=== PATIENT | female | born 1945 | race Hispanic/Latino ===

== ENCOUNTER 2019-04-12 10:06 | Day surgery (SDC) | payer MEDICARE ==
[2019-04-11 11:31] LABS: BASOPHILS % (AUTO) 0.6 % (0.0-5.0); EOSINOPHILS % (AUTO) 2.6 % (0.0-8.0); HEMATOCRIT 38.6 % (36-48); LYMPHOCYTES % (AUTO) 26.3 % (21.0-51.0); MEAN CORPUSCULAR HEMOGLOBIN 30.5 pg (27.0-33.0); MEAN CORPUSCULAR HGB CONC 31.9 g/dL (32.0-36.0); MEAN CORPUSCULAR VOLUME 95.8 fL (79-99); NEUTROPHILS % (AUTO) 63.3 % (40.0-77.0); PLATELET COUNT (AUTO) 186 K/uL (130-400); RED BLOOD CELL COUNT(AUTO) 4.03 MIL/uL (4.00-5.50); RED CELL DISTRIBUTION WIDTH 13.2 % (11.0-15.5); WHITE BLOOD COUNT (AUTO) 6.4 K/uL (4.8-10.8)
[2019-04-11 11:40] LABS: CREATININE 0.9 mg/dL (0.5-1.5); POTASSIUM 4.6 mmol/L (3.5-5.1)
[2019-04-11 12:42] VITALS: BP 108/66
[2019-04-12] VITALS (15 sets, daily range): BP systolic 126–149; BP diastolic 52–75
[~2019-04-12] VITALS: Ht 142.2 cm; Wt 72.8 kg
[~2019-04-12 10:06] MED LIST: ALEN70TA10 PO; ASPI-555 PO; CLOP75TA14 PO; DICL75TA5 PO; LOSA25TA41 PO; OMEP20TA25 PO; SIMV-46 PO
[2019-04-12] MEDS: CEFAZOLIN SODIUM 1 GM VIAL IVP SCH ×2 (12:00→13:50)
[2019-04-12] MEDS ORDERED: LACTATED RINGERS 1000ML 1,000 ML IV ONE (12:02)
[2019-04-12] MEDS ORDERED: PROPOFOL 10 MG/ML 20ML VIAL IV ONE (12:28)
[2019-04-12] MEDS ORDERED: LIDOCAINE PF 2% 5ML ABBOJECT ONE (12:28)
[2019-04-12] MEDS ORDERED: GLYCOPYRROLATE 1 MG/5 ML SYRINGE ONE (12:28)
[2019-04-12] MEDS ORDERED: FENTANYL CITRATE PF 50 MCG/1 ML 2ML VIAL ONE (12:28)
--- NOTE | 2019-04-12 12:28 | NUR ---
POTENTIAL FOR INFECTION:SHAVED LEFT SHOULDER / LEFT UPPER ARM PER BRANDAN MONTES DE [facility], FOLLOWED BY WIPING WITH MUKUND: 2% CHLORHEXIDINE GLUCONATE CLOTH PATIENTS PRE-OP SKIN PREP
[2019-04-12] MEDS ORDERED: NEOSTIGMINE 5MG/5ML SYR IV ONE (12:29)
[2019-04-12] MEDS ORDERED: ROCURONIUM 10MG/1ML SYR 10 MG/ML ML ONE (12:29)
[2019-04-12] MEDS ORDERED: MIDAZOLAM HCL 1 MG/ML 2ML VIAL ONE (12:29)
[2019-04-12] MEDS ORDERED: ROPIVACAINE 0.5% 5MG/ML 30ML IJ ONE (12:32)
[2019-04-12] MEDS ORDERED: ONDANSETRON HCL 4 MG/2 ML VIAL ONE (14:10)
== END 2019-04-12 16:43 | disposition home or self-care (01) ==
LOC: DAH 10:06
PROVIDERS: ATTEND Orthopaedic Surgery
DX: M75.102 Unspecified rotator cuff tear or rupture of left shoulder, not specified as traumatic (principal); M75.42 Impingement syndrome of left shoulder; I10 Essential (primary) hypertension; E78.5 Hyperlipidemia, unspecified; K21.9 Gastro-esophageal reflux disease without esophagitis; I25.10 Atherosclerotic heart disease of native coronary artery without angina pectoris; M81.0 Age-related osteoporosis without current pathological fracture
CPT/HCPCS: 23130; 23412; 36415; 64415; 71045; 76942; 80048; 85025; 93005; A4213; A4215; A4221; A4222; A4223; A4452; A4510; A4565; A4606; A4649 ×2; A4663; A4930 ×2; A5120; A6204; A6207; A6223; A6260; C1713; J0690; J2001; J2250; J2405; J2704; J2710; J2795; J3010; J3490; J7030; J7120 ×2

== ENCOUNTER 2019-04-14 04:07 | Inpatient (IN) | payer MEDICARE ==
[~2019-04-14] VITALS: Ht 149.9 cm; Wt 77.7 kg
[2019-04-14] MEDS ORDERED: KETOROLAC TROMETHAMINE 30MG/ML ONE (04:46)
[2019-04-14] MEDS ORDERED: HYDROCODONE/ACETAMINOPHEN 10/325 MG TAB ONE (04:46)
[2019-04-14] MEDS ORDERED: MORPHINE SULFATE 4 MG/1ML SYG ONE (05:53)
[2019-04-14 06:13] LABS: BASOPHILS % (AUTO) 0.2 % (0.0-5.0); EOSINOPHILS % (AUTO) 0.1 % (0.0-8.0); HEMATOCRIT 33.2 % (36-48); LYMPHOCYTES % (AUTO) 6.3 % (21.0-51.0); MEAN CORPUSCULAR HEMOGLOBIN 30.7 pg (27.0-33.0); MEAN CORPUSCULAR HGB CONC 32.8 g/dL (32.0-36.0); MEAN CORPUSCULAR VOLUME 93.5 fL (79-99); MONOCYTES % (AUTO) 6.7 % (3.0-13.0); NEUTROPHILS % (AUTO) 86.3 % (40.0-77.0); PLATELET COUNT (AUTO) 144 K/uL (130-400); RED BLOOD CELL COUNT(AUTO) 3.55 MIL/uL (4.00-5.50); RED CELL DISTRIBUTION WIDTH 12.6 % (11.0-15.5); WHITE BLOOD COUNT (AUTO) 11.1 K/uL (4.8-10.8)
[2019-04-14 06:23] LABS: CREATININE 0.8 mg/dL (0.5-1.5); POTASSIUM 4.2 mmol/L (3.5-5.1)
[2019-04-14] MEDS ORDERED: ACETAMINOPHEN 325 MG TAB PO PRN ×2 (07:00)
[2019-04-14] MEDS ORDERED: LACTULOSE 20 GM/30 ML UDCUP PO PRN (07:00)
[2019-04-14] MEDS ORDERED: HYDRALAZINE HCL 20 MG/ML VIAL IV PRN (07:00)
[2019-04-14] MEDS ORDERED: ONDANSETRON HCL 4 MG/2 ML VIAL IVP PRN (07:00)
[2019-04-14] MEDS: CEFAZOLIN SODIUM 1 GM VIAL IVP SCH ×2 (10:15→22:38)
[2019-04-14] MEDS ORDERED: FAMOTIDINE 20MG TAB 20 MG TAB ONE (11:00)
[2019-04-14] MEDS ORDERED: ENOXAPARIN SODIUM 40 MG/0.4 ML SYRINGE SQ ONE (11:00)
--- NOTE | 2019-04-14 11:24 | NUR ---
INITIAL Patient lives alone. Emergency contact is seun, Audrey Jorge, [phone]. No Home Health. PHC is with [facility] 26 hours a week. DME: [facility], shower chair. Granddaughter is provider. Patient needs help with ADL's and does not drive. PCP is Andres Castillo. Pharmacy is [facility] in [place]. DCP is home. Addendum: 04/14/19 at 1128 by TYE REYES SS Amended: Links added.
--- NOTE | 2019-04-14 13:04 | NUR ---
DCP - Rehab MD order for rehab placement. SW met with patient and granddaughter, Audrey Jorge. SW informed patient of MD order but patient states she does not want to go to any facility. Patient stated she wants to go home and would prefer to have Home Health. [facility] completed for any Home health in network. Patient has no preference. Granddaughter, Audrey, stated that patient's daughter is coming from [place] to help care for patient. Patient will have 24 hour care as per granddaughter. Patient's nurse, Mar, informed of above information.
[2019-04-14] MEDS ORDERED: SODIUM CHLORIDE 0.9% 100 ML IV ONE (14:14)
[2019-04-14] MEDS ORDERED: CEFAZOLIN SODIUM 1 GM VIAL ONE (14:14)
[2019-04-14] MEDS ORDERED: SODIUM CHLORIDE 0.9% 500ML 500 ML IV ONE (14:15)
[2019-04-14 17:18] VITALS: BP 145/65
[2019-04-14 19:21] VITALS: BP 172/67
[2019-04-14] MEDS: FAMOTIDINE 20MG TAB 20 MG TAB PO SCH (19:38)
[2019-04-14] MEDS: SIMVASTATIN 20 MG TABLET PO SCH (19:39)
[2019-04-14] MEDS: DICLOFENAC SODIUM 75 MG PO SCH (20:41)
[2019-04-14] MEDS: KETOROLAC TROMETHAMINE 30MG/ML IV PRN (20:42)
[2019-04-14 22:58] VITALS: BP 130/50
[2019-04-15 03:15] VITALS: BP 102/49
[2019-04-15 05:35] LABS: BASOPHILS % (AUTO) 0.3 % (0.0-5.0); EOSINOPHILS % (AUTO) 0.9 % (0.0-8.0); LYMPHOCYTES % (AUTO) 23.9 % (21.0-51.0); MEAN CORPUSCULAR HEMOGLOBIN 30.6 pg (27.0-33.0); MEAN CORPUSCULAR HGB CONC 32.7 g/dL (32.0-36.0); MEAN CORPUSCULAR VOLUME 93.5 fL (79-99); MONOCYTES % (AUTO) 9.3 % (3.0-13.0); NEUTROPHILS % (AUTO) 65.2 % (40.0-77.0); PLATELET COUNT (AUTO) 154 K/uL (130-400); RED BLOOD CELL COUNT(AUTO) 3.53 MIL/uL (4.00-5.50); RED CELL DISTRIBUTION WIDTH 12.6 % (11.0-15.5)
[2019-04-15] MEDS: CEFAZOLIN SODIUM 1 GM VIAL IVP SCH ×3 (05:54→21:14)
[2019-04-15 05:58] LABS: CREATININE 0.9 mg/dL (0.5-1.5); POTASSIUM 3.7 mmol/L (3.5-5.1)
[2019-04-15 06:32] LABS: CRP QUANTITATIVE 143.3 mg/L (0.00-9.0)
[2019-04-15 08:16] VITALS: BP 138/51
[2019-04-15] MEDS: DICLOFENAC SODIUM 75 MG PO SCH ×2 (09:00→21:00)
[2019-04-15] MEDS: ASPIRIN 81 MG EC TAB PO SCH (09:00)
[2019-04-15] MEDS ORDERED: ENOXAPARIN SODIUM 40 MG/0.4 ML SYRINGE SQ SCH (09:00)
[2019-04-15] MEDS: LOSARTAN 50 MG TABLET PO SCH (09:00)
[2019-04-15] MEDS: CLOPIDOGREL BISULFATE 75 MG TAB PO SCH (09:01)
[2019-04-15] MEDS: FAMOTIDINE 20MG TAB 20 MG TAB PO SCH ×2 (09:01→20:44)
[2019-04-15] MEDS: ENOXAPARIN SODIUM 30 MG/0.3 ML SQ SCH (09:03)
[2019-04-15 11:22] VITALS: BP 130/55
[2019-04-15] MEDS ORDERED: LIDOCAINE HCL 1% 20 ML VIAL INJ SCH (12:30)
[2019-04-15] MEDS: KETOROLAC TROMETHAMINE 30MG/ML IV PRN (13:13)
[2019-04-15 15:11] LABS: SPECIMENTYPE,BODY FLUID SYNOVIAL
[2019-04-15 15:12] LABS: APPEARANCE BODY FLUID TURBID (CLEAR); COLOR,BODY FLUID YELLOW (LT YELLOW); TOTAL VOLUME,BODY FLUID 0.5 mL
[2019-04-15 15:13] LABS: BODY FLUID WBC 6260 /cu. mm.
[2019-04-15 15:14] LABS: BODY FLUID RBC 3875 /cu. mm.
[2019-04-15 15:15] LABS: BF LYMPHOCYTE 9 %; BF MONOCYTE 8 %
[2019-04-15 16:33] VITALS: BP 136/59
[2019-04-15 18:09] VITALS: BP 130/62
[2019-04-15] MEDS: HYDROCODONE/ACETAMINOPHEN 5/325 MG TAB PO PRN (19:00)
--- NOTE | 2019-04-15 20:05 | NUR ---
WOUND ASSESSMENT #1 LEFT SHOULDER (TOP)INCISION ULISES,WELL APPROXIMATED ,X11 MARCO A INTACT ,NO SIGN OF ACUTE INFECTION,BRUISING SCATTERED AT PERIPHERY OF WOUND NOTED #2 RIGHT ANTERIOR KNEE WITH PUNCTURE SITE S/P ASPIRATION ,COVERED WITH GAUZE / THU WRAP ,DRY/INTACT Addendum: 04/15/19 at 2055 by VALENTÍN SANDOVAL RN RN Amended: Links added.
[2019-04-15] MEDS: SIMVASTATIN 20 MG TABLET PO SCH (20:44)
[2019-04-15 23:45] VITALS: BP 120/53
[2019-04-16] MEDS: KETOROLAC TROMETHAMINE 30MG/ML IV PRN ×2 (01:07→15:14)
[2019-04-16 03:48] VITALS: BP 127/61
[2019-04-16 05:15] LABS: BASOPHILS % (AUTO) 0.7 % (0.0-5.0); EOSINOPHILS % (AUTO) 2.4 % (0.0-8.0); LYMPHOCYTES % (AUTO) 24.1 % (21.0-51.0); MEAN CORPUSCULAR HEMOGLOBIN 30.8 pg (27.0-33.0); MEAN CORPUSCULAR HGB CONC 33.2 g/dL (32.0-36.0); MEAN CORPUSCULAR VOLUME 92.8 fL (79-99); MONOCYTES % (AUTO) 8.5 % (3.0-13.0); NEUTROPHILS % (AUTO) 64.1 % (40.0-77.0); PLATELET COUNT (AUTO) 182 K/uL (130-400); RED BLOOD CELL COUNT(AUTO) 3.34 MIL/uL (4.00-5.50); RED CELL DISTRIBUTION WIDTH 12.5 % (11.0-15.5); WHITE BLOOD COUNT (AUTO) 5.9 K/uL (4.8-10.8)
[2019-04-16 05:20] LABS: CREATININE 0.3 mg/dL (0.5-1.5); POTASSIUM 3.5 mmol/L (3.5-5.1)
[2019-04-16] MEDS: CEFAZOLIN SODIUM 1 GM VIAL IVP SCH ×3 (05:43→21:24)
[2019-04-16 08:05] VITALS: BP 131/53
[2019-04-16] MEDS: FAMOTIDINE 20MG TAB 20 MG TAB PO SCH ×2 (08:57→21:17)
[2019-04-16] MEDS: DICLOFENAC SODIUM 75 MG PO SCH ×2 (08:57→21:00)
[2019-04-16] MEDS: ASPIRIN 81 MG EC TAB PO SCH (08:57)
[2019-04-16] MEDS: LOSARTAN 50 MG TABLET PO SCH (08:57)
[2019-04-16] MEDS: CLOPIDOGREL BISULFATE 75 MG TAB PO SCH (08:57)
[2019-04-16] MEDS: ENOXAPARIN SODIUM 30 MG/0.3 ML SQ SCH (08:59)
[2019-04-16 10:56] VITALS: BP 132/61
[2019-04-16 15:38] VITALS: BP 152/63
[2019-04-16 19:54] VITALS: BP 135/62
[2019-04-16] MEDS: SIMVASTATIN 20 MG TABLET PO SCH (21:17)
[2019-04-16 23:53] VITALS: BP 137/85
[2019-04-17 03:56] VITALS: BP 141/85
[2019-04-17 05:58] LABS: BASOPHILS % (AUTO) 0.6 % (0.0-5.0); EOSINOPHILS % (AUTO) 5.6 % (0.0-8.0); HEMATOCRIT 34.7 % (36-48); LYMPHOCYTES % (AUTO) 26.7 % (21.0-51.0); MEAN CORPUSCULAR HEMOGLOBIN 30.7 pg (27.0-33.0); MEAN CORPUSCULAR HGB CONC 32.6 g/dL (32.0-36.0); MEAN CORPUSCULAR VOLUME 94.3 fL (79-99); MONOCYTES % (AUTO) 7.5 % (3.0-13.0); NEUTROPHILS % (AUTO) 59.4 % (40.0-77.0); PLATELET COUNT (AUTO) 227 K/uL (130-400); RED BLOOD CELL COUNT(AUTO) 3.68 MIL/uL (4.00-5.50); RED CELL DISTRIBUTION WIDTH 12.7 % (11.0-15.5); WHITE BLOOD COUNT (AUTO) 4.7 K/uL (4.8-10.8)
[2019-04-17] MEDS: CEFAZOLIN SODIUM 1 GM VIAL IVP SCH ×2 (05:58→13:16)
[2019-04-17 06:42] LABS: CREATININE 0.9 mg/dL (0.5-1.5); POTASSIUM 3.3 mmol/L (3.5-5.1)
[2019-04-17] MEDS ORDERED: POTASSIUM CHLORIDE 20MEQ/100ML 100 ML IV PRN (07:30)
[2019-04-17] MEDS ORDERED: LIDOCAINE HCL-MPF 1% 2ML VIAL IV PRN (07:30)
[2019-04-17] MEDS ORDERED: POTASSIUM CHLORIDE 10% ELIXIR 20 MEQ/15 ML UDCUP PO PRN (07:30)
[2019-04-17 08:00] VITALS: BP 128/54
[2019-04-17] MEDS: ASPIRIN 81 MG EC TAB PO SCH (08:05)
[2019-04-17] MEDS: FAMOTIDINE 20MG TAB 20 MG TAB PO SCH (08:06)
[2019-04-17] MEDS: CLOPIDOGREL BISULFATE 75 MG TAB PO SCH (08:06)
[2019-04-17] MEDS: LOSARTAN 50 MG TABLET PO SCH (08:06)
[2019-04-17] MEDS: HYDROCODONE/ACETAMINOPHEN 5/325 MG TAB PO PRN (08:07)
[2019-04-17] MEDS: ENOXAPARIN SODIUM 30 MG/0.3 ML SQ SCH (08:10)
[2019-04-17] MEDS: DICLOFENAC SODIUM 75 MG PO SCH (08:16)
[2019-04-17] MEDS: POTASSIUM CHLORIDE 20 MEQ ERTAB PO PRN ×3 (11:16→15:43)
[2019-04-17 12:00] VITALS: BP 126/47
--- NOTE | 2019-04-17 16:54 | NUR ---
DISCHARGE 1640: I went over discharge instructions with patient, reinforced importance of following up with Dr. Restrepo, instructed on pain management, decrease swelling, informed her of nurse to follow up with her tomorrow from [facility], instructed on continuing home medications. Patient and family verbalized understanding, also instructed on care of incision to lt shoulder, on s/s to report to doctor immediately, verbalized understanding. Patient's saline lock removed from rt forearm with catheter intact, no s/s of infection noted to site. Patient taken via wheelchair to private car with family at side. No complaint offered at this time. 1654: I called [facility] spoke to Matilde Emmanuel RN and gave report on patient's visit, results, status on discharge, procedures done for patient this visit and also patient with incision from previous surgery done last Wednesday. Matilde Emmanuel RN verbalized understanding.
== END 2019-04-17 17:00 | disposition home health service (06) | DRG 872 ==
LOC: EDH 04:07 → EDHIP 06:40 → 4BH 16:55
PROVIDERS: ADMIT Internal Medicine; ATTEND Internal Medicine
PROC: 0S9C3ZZ Drainage of Right Knee Joint, Percutaneous Approach (ICD-10-PCS; principal; 2019-04-15)
DX: A41.9 Sepsis, unspecified organism (principal); M00.9 Pyogenic arthritis, unspecified; E44.1 Mild protein-calorie malnutrition; E87.1 Hypo-osmolality and hyponatremia; Z68.34 Body mass index [BMI] 34.0-34.9, adult; E78.5 Hyperlipidemia, unspecified; E87.6 Hypokalemia; I10 Essential (primary) hypertension; I25.10 Atherosclerotic heart disease of native coronary artery without angina pectoris; M17.11 Unilateral primary osteoarthritis, right knee; E66.9 Obesity, unspecified; M25.461 Effusion, right knee; Z79.899 Other long term (current) drug therapy
CPT/HCPCS: 36415; 71045; 73562; 76942; 80048; 84145; 85025; 86140; 87040; 87070; 87205; 89051; 93005; 93971; 97039; A4565; A4606; G0378; J0360; J0690; J1650; J1885; J2001; J2250; J2270; J2405; J2704; J2710; J2795; J3010; J3490; J7030; J7040; J7120